=== PATIENT | male | born 1940 | race African-American/Black ===

== ENCOUNTER 2017-04-25 11:57 | Emergency (ER) | payer MEDICARE, MEDICAID ==
[2017-04-25 12:54] LABS: ALT (SGPT) 31 U/L (8-55); AST (SGOT) 29 U/L (5-34); Albumin 3.4 g/dL (3.4-4.8); Alkaline Phosphatase 65 U/L (40-150); Anion Gap 14 mmol/L (10-20); BUN (Urea Nitrogen) 16 mg/dL (8.4-25.7); Bilirubin, Total 0.5 mg/dL (0.2-1.2); Calc. Creatinine Clearance 0 mL/min (70-130); Calcium 9.3 mg/dL (7.8-10.44); Carbon Dioxide 26 mmol/L (23-31); Chloride 108 mmol/L (98-107); Estimated GFR-MDRD 80; Globulin 4.5 g/dL (2.4-3.5); Glucose 104 mg/dL (83-110); Protein, Total 7.9 g/dL (5.8-8.1); Sodium 144 mmol/L (136-145)
[2017-04-25 12:58] LABS: CKMB 0.5 ng/mL (0-6.6); Mean Corpuscular HGB CONC 31.6 g/dL (32.0-36.0); Mean Corpuscular Hemoglobin 27.8 pg (27.0-31.0); Mean Corpuscular Volume 87.9 fl (80.0-94.0); Mean Platelet Volume 7.6 fL (7.4-10.4); Platelet Count 232 thou/uL (130-400); RBC Distribution Width 14.3 % (11.5-14.5); Red Blood Cell (RBC) Count 5.05 mill/uL (4.70-6.10); Troponin I Less than 0.010 ng/mL (< 0.028); White Blood Cell (WBC) Count 7.3 thou/uL (4.8-10.8)
[2017-04-25 13:05] LABS: Band 3 % (5-11); Eosinophils 2 % (0-10); Lymphocytes 36 % (21-51); MDiff Complete? YES; Monocytes 19 % (0-10); Neutrophil 40 % (42-75)
[2017-04-25 13:37] LABS: Lipase 20 U/L (8-78)
[2017-04-25 13:38] LABS: CK (CPK) 145 U/L (30-200)
--- NOTE | 2017-04-26 15:38 | EKG ---
Test Reason : Blood Pressure : / mmHG Vent. Rate : 110 BPM Atrial Rate : 110 BPM P-R Int : 116 ms QRS Dur : 092 ms QT Int : 364 ms P-R-T Axes : 057 036 -06 degrees QTc Int : 492 ms Sinus tachycardia with Premature supraventricular complexes Cannot rule out Inferior infarct , age undetermined Abnormal ECG Confirmed by BRIDGET WHITNEY, CRUZ ([id number]), news video editor LUIS COLLADO ([id number]) on 04/26/2017 3:38:38 PM Referred By: Confirmed By:CRUZ GILL MD
== END 2017-04-25 14:32 ==
LOC: ERS 11:57
DX: R53.1 Weakness (principal); B96.89 Other specified bacterial agents as the cause of diseases classified elsewhere; I10 Essential (primary) hypertension; M19.90 Unspecified osteoarthritis, unspecified site; Z87.891 Personal history of nicotine dependence; Z79.01 Long term (current) use of anticoagulants; Z79.899 Other long term (current) drug therapy; Z86.73 Personal history of transient ischemic attack (TIA), and cerebral infarction without residual deficits
CPT/HCPCS: 36415; 80053; 82553; 83605; 83690; 84484; 85025; 93005; 94760; 96360